=== PATIENT | male | born 1960 | race Caucasian/White ===

== ENCOUNTER → 2020-12-07 04:06 | Outpatient (CLI) | payer BC, SELFPAY ==
[2020-12-07 19:36] LABS: SARS-CoV-2 RNA PCR Negative
== END ==
PROVIDERS: Visit Provider Internal Medicine Gastroenterology
DX: Z20.822 Contact with and (suspected) exposure to COVID-19 (principal)
CPT/HCPCS: C9803; U0003; U0005

== ENCOUNTER 2020-12-11 02:31 | Day surgery (SDC) | payer BC, SELFPAY ==
[2020-11-30 09:59] VITALS: BMI 29.9
[2020-12-11 10:17] VITALS: BP 124/84; PULSE 77; RESP 18; TEMP 36.2; O2SAT 99; BMI 30.4
[2020-12-11] MEDS: LACTATED RINGERS 1,000 ML 150 ML IV CONT (10:25)
--- NOTE | 2020-12-11 10:25 | P.PNAN_ITS ---
Anes - Initial Pre Proc Eval Procedure: Operation Date: 12/11/20 11:45 Proposed Procedures p Screening Colonoscopy - Joshua Ge MD Date/Time: 12/11/20 10:25 Surgeon: Joshua Ge MD Pre Op Diagnosis: neoplasm screening Patient Data Age: 60 Gender: M Height: 1.68 m Weight: 85.5 kg Last Vital Signs Temp 36.2 C L 12/11/20 10:17 Pulse 77 12/11/20 10:17 Resp 18 12/11/20 10:17 BP 124/84 12/11/20 10:17 Pulse Ox 99 12/11/20 10:17 Allergies Allergy/AdvReac Type Severity Reaction Status Date / Time No Known Allergies Allergy Verified 12/11/20 10:16 Home Medications Medication Instructions Recorded Confirmed Type sod picosulf 10 mg-magnes 3.5 160 ml PO BID #160 ml 11/28/20 11/30/20 Rx gram-citric 12 gram/160 mL oral solution lisinopril 20 mg PO DAILY 11/30/20 11/30/20 History Patient hx anesthesia problems: none Family hx anesthesia problems: none [facility] Past Medical History Medical History (Updated 12/10/20 @ 09:43 by Cl Eaton DO) Hypertension Surgical History Surgical History (Updated 12/10/20 @ 09:43 by Cl Eaton DO) History of tonsillectomy Social History Social History (Updated 06/16/19 @ 08:19 by Dee Sapp RN) Smoking packs per day: 0.75 Smoking cigarettes per day: 15.0 Years smoked: 20 Smoking pack-years: 15.00 Smoking status: Former smoker Tobacco type: cigarettes Alcohol intake: current Alcohol use details: rarely Living arrangements: with family Gender identity (if verbalized by the patient): Male Spiritual care concerns: No Anes - Eval Final PreProcedure Day of Procedure 12/11/20 10:25 Patient weight: obese Heart: regular rate and rhythm Lungs: clear to auscultation and normal air movement Airway: Mallampati scale class II Neurological: alert and oriented Last oral intake: >/= 8 hours ASA classification: III Emergent: no Anesthetic plan: proceed Anesthesia type and monitoring: general GIVS and standard monitoring Informed Consent: The patient's anesthetic plan and its attendant risks and benefits were discussed with the patient/family/POA. Questions were solicited and answers provided to the satisfaction of the patient/family/POA.
--- NOTE | 2020-12-11 10:29 | WPDGICN ---
Assessment and Plan Assessment and plan (1) Family history of colon cancer in father: Code(s): Z80.0 - Family history of malignant neoplasm of digestive organs Status: Acute Assessment and Plan: Patient's father had colon cancer for this reason screening colonoscopy in 5 year intervals is advised. GI Consult Note Consult date/time: 12/11/20 10:29 HPI: Andrzej Stevenson is a 60 year old male Presents for screening colonoscopy. Patient reports that his bowel habits are normal. He denies abdominal pain. He denies any blood in his stools. Family history is significant his father had colon cancer. Patient presents today for neoplasia screening on this basis. Review of Systems Review of Systems: All systems reviewed & are unremarkable except as noted in HPI and below PMFSH Past Medical History Medical History (Updated 12/11/20 @ 10:30 by Joshua Ge MD) Hypertension Surgical History Surgical History (Updated 12/10/20 @ 09:43 by Cl Eaton DO) History of tonsillectomy Social History Social History (Updated 06/16/19 @ 08:19 by Dee Sapp RN) Smoking packs per day: 0.75 Smoking cigarettes per day: 15.0 Years smoked: 20 Smoking pack-years: 15.00 Smoking status: Former smoker Tobacco type: cigarettes Alcohol intake: current Alcohol use details: rarely Living arrangements: with family Gender identity (if verbalized by the patient): Male Spiritual care concerns: No Meds Home Medications and Allergies Home Medications Medication Instructions Recorded Confirmed Type sod picosulf 10 mg-magnes 3.5 160 ml PO BID #160 ml 11/28/20 11/30/20 Rx gram-citric 12 gram/160 mL oral solution lisinopril 20 mg PO DAILY 11/30/20 11/30/20 History Allergies Allergy/AdvReac Type Severity Reaction Status Date / Time No Known Allergies Allergy Verified 12/11/20 10:16 Vital Signs Vital Signs - 24 hr 12/11/20 10:17 Temperature 97.2 F L Pulse Rate 77 Respiratory Rate 18 Blood Pressure 124/84 Pulse Oximetry 99 Exam Narrative: Exam Narrative: Physical exam reveals patient to be alert. Vital signs stable. HEENT exam is unremarkable. Patient is anicteric. Lungs are clear to auscultation and percussion. Heart is without murmur or extra sounds. Abdominal exam bowel sounds are present soft nontender with no organomegaly. Digital external rectal exam is normal.
[2020-12-11 11:23] VITALS: BP 98/64; PULSE 71; RESP 20; O2SAT 95
[2020-12-11 11:33] VITALS: BP 99/67; PULSE 75; RESP 19; O2SAT 100
[2020-12-11 11:43] VITALS: BP 113/74; PULSE 64; RESP 19; O2SAT 100
== END 2020-12-11 11:49 | disposition home or self-care (01) ==
PROVIDERS: PCP Nurse Practitioner Adult Health; Visit Provider Internal Medicine Gastroenterology
PROC: 0DJD8ZZ Inspection of Lower Intestinal Tract, Via Natural or Artificial Opening Endoscopic (ICD-10-PCS; CPT 45378; principal; 2020-12-11 11:45)
DX: Z12.11 Encounter for screening for malignant neoplasm of colon (principal); K63.5 Polyp of colon; K64.8 Other hemorrhoids; Z80.0 Family history of malignant neoplasm of digestive organs; I10 Essential (primary) hypertension; Z87.891 Personal history of nicotine dependence
CPT/HCPCS: 45385; 88305; J2704; J7120

== ENCOUNTER 2022-05-10 17:14 | Emergency (ER) | payer BC, SELFPAY ==
[2022-05-10 17:29] VITALS: BP 164/90; PULSE 84; RESP 18; TEMP 36.4; O2SAT 99
--- NOTE | 2022-05-10 17:31 | ED.MALEGU ---
HPI - Male Genitourinary General Chief complaint: Urogenital-Male Stated complaint: blood in urine Time Seen by Provider: 05/10/22 17:31 Source: patient, family, RN notes reviewed and old records reviewed Mode of arrival: ambulatory Limitations: no limitations History of Present Illness HPI Narrative: 61-year-old male who presents to express care with complaints of concern for possible UTI with noted blood in the urine. Patient does admit past history of uretral stone for which he had to have lithotripsy 5 years ago. Patient reports that he noted clot in toilet at home and concern for UTI or stone. Urine obtained upon arrival to clinic with 3+ blood noted in specimen and small clot. Patient denies any nausea or vomiting or any known fevers, chills or sweats. Patient reports that he has pain in his penis when he urinates , denies any CVA tenderness or any abdominal discomfort. MD Complaint: dysuria and other (blood in urine) Onset (ago): hour(s) (1- 1.5hours ago noticed blood in urine and pain with urination) Location: penis Related Data Home Medications Medication Instructions Recorded Confirmed lisinopril 20 mg tablet 20 mg PO DAILY 11/30/20 05/10/22 Allergies Allergy/AdvReac Type Severity Reaction Status Date / Time No Known Allergies Allergy Verified 05/10/22 17:34 Review of Systems Review of Systems: CONSTITUTIONAL: Denies fever, chills, or sweats. CARDIOVASCULAR: Denies chest pain, palpitations, or edema. RESPIRATORY: Denies cough or dyspnea. GASTROINTESTINAL: Denies abdominal pain, nausea, vomiting, or diarrhea. GENITOURINARY: Reports dysuria, no frequency, urgency. Denies flank pain positive for hematuria. SKIN: Denies rash or itching. MUSCULOSKELETAL: Denies back pain or myalgia. Denies CVA tenderness NEUROLOGIC: Denies headache All systems reviewed & are unremarkable except as noted in HPI and below [facility] Past Medical History Medical History (Updated 05/11/22 @ 00:01 by Usha Lucas) Hypertension Kidney stone Surgical History Surgical History (Updated 05/10/22 @ 17:57 by Renea Merida NP) History of lithotripsy History of tonsillectomy Social History Social History Smoking packs per day: 0.75 Smoking cigarettes per day: 15.0 Years smoked: 20 Smoking pack-years: 15.00 Smoking status: Former smoker Tobacco type: cigarettes Alcohol intake: current Alcohol use details: rarely Gender identity (if verbalized by the patient): Male Spiritual care concerns: No Comments At time of signature, agree with nursing past medical, surgical, social and family history. There is no relevant family history pertinent to the presenting complaint Exam Narrative: GENERAL: Well-appearing, well-nourished, and in no acute distress. HEAD: Normocephalic, atraumatic. NECK: Supple. CHEST: Clear to auscultation. No respiratory distress.SAO2 99% on room air HEART: Regular rate and rhythm. No murmur heard. Normal peripheral pulses. ABDOMEN: Soft, nontender, nondistended, normal active bowel sounds. No CVA tenderness, reports pain in penis with urination, some hematuria and clots noted EXTREMITIES: Normal range of motion. No edema. SKIN: Warm, dry, no rash. NEURO: No focal deficits. Alert and oriented x3. Course Course Emergency Course: Patient is aware of diagnosis, understands and agrees to treatment plan.? Anticipatory guidance given.? Patient agrees to follow-up as directed and is aware of reasons to seek care at the emergency department. Portions of this record may have been created with voice recognition software Level of Care: Express Care Visit Vital Signs Vital signs: Vital Signs Temperature 36.4 C 05/10/22 17:29 Pulse Rate 84 05/10/22 17:29 Respiratory Rate 18 05/10/22 17:29 Blood Pressure 164/90 H 05/10/22 17:29 Pulse Oximetry 99 05/10/22 17:29 Oxygen Delivery Room Air 05/10/22 17:29 Temperature
== END 2022-05-10 18:04 | disposition home or self-care (01) ==
PROVIDERS: Emergency Provider Registered Nurse; PCP Nurse Practitioner Adult Health
DX: R31.9 Hematuria, unspecified (principal); Z87.891 Personal history of nicotine dependence; I10 Essential (primary) hypertension
CPT/HCPCS: 81003; 87086; 99213; G0463

== ENCOUNTER 2022-05-20 09:49 | Outpatient (CLI) | payer BC, SELFPAY ==
--- NOTE | ~2022-05-20 | XR_ITS ---
XR abdomen/kub 1V 05/20/2022 10:15 INDICATION: Gross hematuria TECHNIQUE: KUB COMPARISON: 01/11/2016 and 01/18/2016 FINDINGS: Bowel gas pattern is normal. Moderate colonic fecal loading. There is no evidence of free a ir, mass, organomegaly, ascites or obstruction. No abnormal calculi are seen. The bones appear inta ct. IMPRESSION: 1: No acute abdominal abnormality identified. Reviewed, dictated and finalized at location B.
--- NOTE | ~2022-05-20 | CT_ITS ---
EXAMINATION: CT abdomen pelvis wo/w con DATE: 05/20/2022 10:43 INDICATION: Hematuria. TECHNIQUE: Computed tomography (CT) of the abdomen and pelvis was performed without and with intraven ous contrast using a total of 130 mL Omnipaque-350 intravenous contrast with a double-bolus technique for simultaneous opacification of the renal parenchyma and renal collecting system. Automated exposu re control and iterative reconstruction technique were employed. The dose-length product was 1366.96 mGy-cm. COMPARISON: None FINDINGS: The visualized portions of the lung bases demonstrate mild atelectasis. No pleural effusion. The hear t size is normal. No pericardial effusion. There are cysts in the liver measuring up to 7.1 cm. The g allbladder, spleen, pancreas, and adrenal glands are normal. There are cysts in the kidneys measuring up to 12 mm on the left. The ureters are well opacified and are normal. The bladder is normal. The p rostate is mildly enlarged. There are bilateral inguinal hernias containing fat. There is diverticulo sis of the colon without evidence of diverticulitis. There are no dilated loops of bowel. The appendi x is normal. There are no pathologically enlarged lymph nodes. There is no free intraperitoneal fluid . There is mild thoracolumbar spondylosis. IMPRESSION: 1. No specific etiology for hematuria. Reviewed, dictated and finalized at location A.
[2022-05-20 10:25] LABS: Estimated Glomerular Filt Rate > 60
== END 2022-05-20 09:50 | disposition home or self-care (01) ==
PROVIDERS: PCP Nurse Practitioner Adult Health; Visit Provider Urology
DX: R31.0 Gross hematuria (principal)
CPT/HCPCS: 74018; 74178; Q9967

== ENCOUNTER → 2023-09-22 16:32 | Outpatient (REF) | payer BC, SELFPAY | LOC: ANHLAB 16:32 | PROVIDERS: PCP Nurse Practitioner Adult Health; Visit Provider Plastic Surgery | DX: D17.1 Benign lipomatous neoplasm of skin and subcutaneous tissue of trunk (principal) | CPT/HCPCS: 88304 ==